=== PATIENT | male | born 1950 | race Caucasian/White ===

== ENCOUNTER 2022-05-07 07:04 | Emergency (ER) | payer MEDICARE, BC ==
[2022-05-07] MEDS ORDERED: Lidocaine 1% (PF) 30 ML VIAL ONE (07:37)
[2022-05-07] MEDS ORDERED: Boostrix 0.5 ML (Tdap) VIAL (>/=7 yrs of age) ONE (07:38)
[2022-05-07] MEDS ORDERED: Lidocaine 1% PF 5 ML VIAL ONE (09:29)
[2022-05-07] MEDS ORDERED: Bacitracin 1 PK ONE (09:57)
== END 2022-05-07 10:12 | disposition home or self-care (01) ==
LOC: CSHERS 07:04
DX: S05.42XA Penetrating wound of orbit with or without foreign body, left eye, initial encounter (principal); E10.9 Type 1 diabetes mellitus without complications; E78.5 Hyperlipidemia, unspecified; E78.00 Pure hypercholesterolemia, unspecified; I10 Essential (primary) hypertension; Z86.73 Personal history of transient ischemic attack (TIA), and cerebral infarction without residual deficits; Z79.02 Long term (current) use of antithrombotics/antiplatelets; Z79.899 Other long term (current) drug therapy; Z23 Encounter for immunization; W18.30XA Fall on same level, unspecified, initial encounter
CPT/HCPCS: 12013; 70450; 70486; 72125; 90471; 90715; J2001

== ENCOUNTER 2023-04-23 06:43 | Emergency (ER) | payer MEDICARE, BC ==
[2023-04-23 07:08] LABS: #Eosinphils 0.2 10x3/uL (0.0-0.5); #Monocytes 0.4 10x3/uL (0.0-1.1); #Neutrophils 4.7 10x3/uL (1.5-8.4); %Basophils 0.5 % (0.0-2.0); %Eosinophils 3.8 % (0.0-6.0); %Monocytes 6.8 % (0.0-10.0); %Neutrophils 78.6 % (40.0-75.0); Hematocrit 35.9 % (38.8-50.0); Mean Corpuscular HGB CONC 33.4 g/dL (32.0-36.0); Mean Corpuscular Hemoglobin 32.6 pg (27.0-33.0); Mean Corpuscular Volume 97.6 fl (81.2-95.1); Mean Platelet Volume 9.4 fl (7.4-10.4); Platelet Count 141 10x3/uL (150-450); RBC Distribution Width 13.7 % (11.5-14.5); Red Blood Cell (RBC) Count 3.68 10x6/uL (4.32-5.72)
[2023-04-23 07:29] LABS: ALT (SGPT) 19 U/L (8-55); AST (SGOT) 19 U/L (5-34); Albumin 4.6 g/dL (3.4-4.8); Alkaline Phosphatase 63 U/L (40-110); Anion Gap 13 mmol/L (10-20); BUN (Urea Nitrogen) 25 mg/dL (8.4-25.7); Bilirubin, Total 1.1 mg/dL (0.2-1.2); Calc. Creatinine Clearance 0 mL/min (70-130); Calcium 10.1 mg/dL (7.8-10.44); Carbon Dioxide 27 mmol/L (23-31); Chloride 104 mmol/L (98-107); Estimated GFR 29; Globulin 2.4 g/dL (2.4-3.5); Glucose 157 mg/dL (80-115); Potassium 3.8 mmol/L (3.5-5.1); Sodium 140 mmol/L (136-145)
[2023-04-23] MEDS ORDERED: hydrALAZINE 20 MG/ML VIAL ONE (07:45)
[2023-04-23] MEDS ORDERED: niCARdipine 25 MG/10 ML SDV ONE (09:05)
== END 2023-04-23 10:26 | disposition short-term general hospital (02) ==
LOC: CSHERS 06:43
DX: S01.112A Laceration without foreign body of left eyelid and periocular area, initial encounter (principal); I62.9 Nontraumatic intracranial hemorrhage, unspecified; I10 Essential (primary) hypertension; M25.461 Effusion, right knee; W22.8XXA Striking against or struck by other objects, initial encounter
CPT/HCPCS: 70450; 70486; 72125; 80053; 85025; J0360